=== PATIENT | male | born 1975 ===

== ENCOUNTER 2022-03-11 21:45 | Emergency (ER) | payer SELFPAY ==
[~2022-03-11] VITALS: Ht 167.6 cm; Wt 73.0 kg
[2022-03-11] MEDS ORDERED: IBUPROFEN 400MG TABLET PO ONE (22:15)
[2022-03-12] MEDS ORDERED: IBUP-2029 MT (00:41)
[2022-03-12] MEDS ORDERED: IBUPROFEN 400MG TABLET PO NR (04:00)
[2022-03-12 04:25] VITALS: BP 116/63
== END 2022-03-12 04:26 | disposition home or self-care (01) ==
LOC: ER 21:45
DX: M25.562 Pain in left knee (principal); G89.29 Other chronic pain
CPT/HCPCS: 73560; 73590; 99284